=== PATIENT | male | born 2000 | race Two or more races ===

== ENCOUNTER 2025-08-11 23:03 | Emergency (ER) | payer MEDICAID, OTHER ==
[~2025-08-11] VITALS: Ht 175.3 cm; Wt 80.3 kg
--- NOTE | 2025-08-11 23:58 | DVH ---
EXAM: CT ORBITS WO CONTRAST CLINICAL HISTORY: Strabismus event TECHNIQUE: Multiple contiguous axial images were obtained of the facial bones without intravenous con trast. Sagittal and coronal reformations were obtained. This exam was performed according to our depa rtmental dose optimization program. Up-to-date CT equipment and radiation dose reduction techniques a re utilized as appropriate. Comparison: None FINDINGS: The mastoid air cells and visualized paranasal sinuses are well-aerated aside from trace paranasal si nus mucosal thickening and a small mucous retention cyst or polyp in the right maxillary sinus.. The globes and orbits are normal in appearance without CT evidence of orbital hemorrhage. The extraocular muscles are intact. No pre or postseptal inflammation, fluid collection, or gas. No facial, mandibul ar, or orbital wall fracture is identified. The temporomandibular joints are maintained. IMPRESSION: 1. No evidence of acute facial fracture or orbital hemorrhage. 2. No noncontrast evidence of acute abnormality in the visualized orbits.
[2025-08-11 23:59] LABS: Hematocrit 42.8 % (41.0-53.0); Hemoglobin 14.9 g/dL (13.5-17.5); Mean Corpuscular Hemoglobin 28.3 pg (28.0-32.0); Mean Corpuscular Volume 81.1 fL (80.0-100.0); Nucleated Red Blood Cells % 0.1 %
[2025-08-12] LABS: Chloride 103 mmol/L (98-107); Potassium 3.8 mmol/L (3.5-5.1); Sodium 140 mmol/L (136-145)
[2025-08-12 00:01] LABS: Anion Gap 10 (5-15); Calcium 9.3 mg/dL (8.7-10.4); Carbon Dioxide 27 mmol/L (20-31)
[2025-08-12 00:06] LABS: BUN/Creatinine Ratio 8.8 (10.0-20.0); Blood Urea Nitrogen 10 mg/dL (9-23)
[2025-08-12 00:08] LABS: Glucose 108 mg/dL (74-106)
--- NOTE | 2025-08-12 00:56 | ED.PDOC ---
History of Present Illness HPI Comments 25 y/o M, with no significant history, presents with c/c eye problem. Patient endorses on sudden, unprovoked, and atraumatic onset of double and then blurry vision, yesterday, while at work, operating a forklift. Patient states that his left eye was the eye of concern. Denial of pertinent history or events. Patient states the double vision and blurred vision has resolved at today's visit. Patient also reports concerns for recent onset of intermittent chest pain 2x weeks ago. Denial of any symptoms, currently. Vital signs were stable on arrival. Chief Complaint: Eye Problem Time Seen by MD: 23:24 Reviewed Notes: Nurses Notes, Medications, Allergies Allergies: Coded Allergies: NO KNOWN ALLERGIES (Unverified , 08/11/25) Information Source: Patient Mode of Arrival: Ambulatory Severity: Moderate Timing: Days Duration: Minutes Prehospital treatment: None Past Medical History PAST MEDICAL HISTORY: Denies Surgical History: Denies all surgeries Family History Family History: Reviewed,noncontributory to illness, No family hx of Cancer, No family hx of DM, No family hx of Heart mini, No family hx of HTN, No family hx ofKidney mini, No family hx of Liver mini, No family hx of Lung mini, No family hx of Stroke Social History Smoker: Non-Smoker Alcohol: Denies ETOH Use Drugs: Denies Drug Use Lives In: Home Constitutional: denies: chills, diaphoresis, fatigue, fever, malaise, sweats, weakness, others EENTM: reports: others (Strabismus event with blurred vision that has resolved); denies: blurred vision, double vision, ear bleeding, ear discharge, ear drainage, ear pain, ear ringing, eye pain, eye redness, hearing loss, mouth pain, mouth swelling, nasal discharge, nose bleeding, nose congestion, nose pain, photophobia, tearing, throat pain, throat swelling, voice changes Respiratory: denies: cough, hemoptysis, orthopnea, SOB at rest, shortness of breath, SOB with excertion, stridor, wheezing, others Cardiovascular: denies: chest pain, dizzy spells, diaphoresis, Dyspnea on exertion, edema, irregular heart beat, left arm pain, lightheadedness, palpitations, PND, syncope, others Gastrointestinal: denies: abdomen distended, abdominal pain, blood streaked bowels, constipated, diarrhea, dysphagia, difficulty swallowing, hematemesis, melena, nausea, poor appetite, poor fluid intake, rectal bleeding, rectal pain, vomiting, others Genitourinary: denies: burning, dysuria, flank pain, frequency, hematuria, in continence, penile discharge, penile sore, pain, testicle pain, testicle swelling, urgency, others Neurological: denies: dizziness, fainting, headache, left sided numbness, left sided weakness, numbness, paresthesia, pre-existing deficit, right sided numbness, right sided weakness, seizure, speech problems, tingling, tremors, weakness, others Musculoskeletal: denies: back pain, gout, joint pain, joint swelling, muscle pain, muscle stiffness, neck pain, others Integumetry: denies: bruises, change in color, change in hair/nails, dryness, laceration, lesions, lumps, rash, wounds, others Allergic/Immunocompromised: denies: Difficulty Healing, Frequent Infections, Hives, Itching, others Hematologic/Lymphatic: denies: anemia, blood clots, easy bleeding, easy bruising, swollen glands, others Endocrine: denies: excessive hunger, excessive sweating, excessive thirst, excessive urination, flushing, intolerance to cold, intolerance to heat, unexplained weight gain, unexplained weight loss, others Psychiatric: denies: anxiety, bipolar disorder, depression, hopeless, panic disorder, schizophrenia, sleepless, suicidal, others All Other Systems: Reviewed and Negative (Comprehensive review of systems are negative unless stated in HPI) Physical Exam General Appearance: No Apparent Distress (Patient was in no distress at time of evaluation.), Normal HEENT: Normal ENT Inspection, Pharynx Normal, TMs Normal, Other (Eye exam was unremarkable. Patient displayed PERRLA and EOMI. No nystagmus or hyphema noted. No signs of trauma.) Neck: Full Range of Motion, Non-Tender, Normal, Normal Inspection Respiratory: Chest Non-Tender, Lungs Clear, No Accessory Muscle Use, No Respiratory Distress, Normal Breath Sounds Cardiovascular: No Edema, No JVD, No Murmur, No Gallop, Normal Peripheral Pulses, Regular Rate/Rhythm, Other (Cardiovascular evaluation was unremarkable.) Breast Exam: Deferred Gastrointestinal: No Organomegaly, Non Tender, No Pulsatile Mass, Normal Bowel Sounds, Soft Genitalia: Deferred Pelvic: Deferred Rectal: Deferred Extremities: No calf tenderness, Normal capillary refill, Normal inspection, Normal range of motion, Non-tender, No pedal edema Neurologic: Alert Cerebellar Function: NOT DONE Reflexes: NOT DONE Skin: Dry, Normal Color, Warm Lymphatic: No Adenopathy Was a procedure done? Was a procedure done?: No Differential Dx Considerations may include: Intracranial neoplasm, electrolyte abnormality, sepsis, acute coronary syndrome, NV X-Ray, Labs, Meds, VS Vital Signs Date Time Temp Pulse Resp B/P (MAP) Pulse Ox O2 Delivery O2 Flow Rate FiO2 08/12/25 00:33 59 08/11/25 23:08 97.9 91 19 117/76 97 97.9 Lab Test 08/11/25 23:42 Range/Units White Blood Count 7.1 4.4-10.8 10^3/uL Red Blood Count 5.28 4.5-5.90 10^6/uL Hemoglobin 14.9 13.5-17.5 g/dL Hematocrit 42.8 41.0-53.0 % Mean Corpuscular Volume 81.1 80.0-100.0 fL Mean Corpuscular Hemoglobin 28.3 28.0-32.0 pg Mean Corpuscular Hemoglobin Concent 34.9 32.0-36.0 g/dL Red Cell Distribution Width 13.7 11.8-14.3 % Platelet Count 198 140-450 10^3/uL Mean Platelet Volume 7.9 6.9-10.8 fL Neutrophils (%) (Auto) 51.6 37.0-80.0 % Lymphocytes (%) (Auto) 37.8 10.0-50.0 % Monocytes (%) (Auto) 7.2 0.0-12.0 % Eosinophils (%) (Auto) 3.1 0.0-7.0 % Basophils (%) (Auto) 0.3 0.0-2.0 % Neutrophils # (Auto) 3.7 1.6-8.6 10 ^3/uL Lymphocytes # (Auto) 2.7 0.4-5.4 10 ^3/uL Monocytes # (Auto) 0.5 0-1.3 10 ^3/uL Eosinophils # (Auto) 0.2 0-0.8 10 ^3/uL Basophils # (Auto) 0 0-0.2 10 ^3/uL Nucleated Red Blood Cells 0.1 % Sodium Level 140 136-145 mmol/L Potassium Level 3.8 3.5-5.1 mmol/L Chloride Level 103 98-107 mmol/L Carbon Dioxide Level 27 20-31 mmol/L Anion Gap 10 5-15 Blood Urea Nitrogen 10 9-23 mg/dL Creatinine 1.14 0.700-1.30 mg/dL Glomerular Filtration Rate Calc 90 >90 mL/min BUN/Creatinine Ratio 8.8 L 10.0-20.0 Serum Glucose 108 H 74-106 mg/dL Calcium Level 9.3 8.7-10.4 mg/dL Troponin I High Sensitivity < 3 L </=54 ng/L [place] [id number] Ph: [phone] DIAGNOSTIC IMAGING Diagnostic Imaging Report : [id number] Signed PATIENT: MIRYAM MOLNIA ACCT: [id number] UNIT: [id number] : 2000 LOC: ER ROOM / BED: / AGE / SEX: 25 / M ADM STATUS: REG ER SERVICE [id number] ORDERING PHYSICIAN: CHEO KESSLER PAC PROCEDURE(s): OB1CT - ORBITS WO CONTRAST REASON: Strabismus event ORDER NUMBER(s): [id number], ACCESSION NUMBER(s): [id number] EXAM: CT ORBITS WO CONTRAST CLINICAL HISTORY: Strabismus event TECHNIQUE: Multiple contiguous axial images were obtained of the facial bones without intravenous contrast. Sagittal and coronal reformations were obtained. This exam was performed according to our departmental dose optimization program. Up-to-date CT equipment and radiation dose reduction techniques are utilized as appropriate. Comparison: None FINDINGS: The mastoid air cells and visualized paranasal sinuses are well-aerated aside from trace paranasal sinus mucosal thickening and a small mucous retention cyst or polyp in the right maxillary sinus.. The globes and orbits are normal in appearance without CT evidence of orbital hemorrhage. The extraocular muscles are intact. No pre or postseptal inflammation, fluid collection, or gas. No facial, mandibular, or orbital wall fracture is identified. The temporomandibu lar joints are maintained. IMPRESSION: 1. No evidence of acute facial fracture or orbital hemorrhage. 2. No noncontrast evidence of acute abnormality in the visualized orbits. ATED BY: CHERIE LUZ MD DICTATED DATE/TIME: 08/11/252355 SIGNED BY: CHERIE LUZ MD SIGNED DATE/TIME: 08/11/252355 CC: X-Ray, Labs, Meds, VS Comment All studies performed the ED were evaluated by me personally. Serum studies were unremarkable for any systemic concerns including unremarkable cardiac markers. EKG revealed a sinus rhythm with a rate of 59. Borderline short UT interval was noted with possible right ventricular hypertrophy. UT interval of 118 and QT interval of 382. CT evaluation without contrast of the bilateral orbits was unremarkable. No neoplasms noted. Patient has been advised to follow up with Ophthalmology in the next few days for definitive evaluation of orbit concerns. Patient should follow up with his primary care provider for discussions related to chest pain concerns. Time of 1ST Reevaluation: 01:18 Reevaluation 1ST: Unchanged Consultation: PCP, Cardiology Patient Education/Counseling: Treatment, Need For Follow Up Family Education/Counseling: Diagnosis, Treatment, No Family Present SEPSIS Sepsis Screen Date sepsis recognized/suspect: Aug 11, 2025 Time Sepsis recognized/suspect: 2307 Recent Procedure: No On Antibiotic Therapy: No Respiratory Rate >20: No Heart Rate >90: No Temp<36 C (96.8 F) or >38.3 C: No SBP <90 or MAP <65 mmHG: No New Acute Mental Status Change: No Is the patient on CPAP, BIPAP,: No Physician Orders Electrocardigram (08/11/25 23:22) Orbits Wo Contrast (08/11/25 23:22) Vital Signs Date Time Temp Pulse Resp B/P (MAP) Pulse Ox O2 Delivery O2 Flow Rate FiO2 08/12/25 00:33 59 08/11/25 23:08 97.9 91 19 117/76 97 97.9 Laboratory Tests Test 08/11/25 23:42 White Blood Count 7.1 10^3/uL (4.4-10.8) Departure 1 Departure Time of Disposition: 01:19 Impression: Primary Impression: H/O blurred vision Additional Impression: History of chest pain Disposition: 01 HOME / SELF CARE / HOMELESS Condition: Stable Additional Instructions: Advised patient follow up with Ophthalmology in the next day or two for definitive evaluation of eye concerns. Additionally, patient should follow up with the primary care provider for discussions related to recurrent chest pain issues. Discharged With: Self, Friend Critical Care Note Critical Care Time?: No Stability Stability form required: No Heart Score Heart Score: Heart Score Response (Comments) Value History Slightly Suspicious 0 EKG Repolarization Disturb 1 Age <45 0 Risk Factors No known risk factors 0 Troponin Normal limit 0 Total 1 I personally scribed for CHEO KESSLER PAC ([email or web address]) on 08/12/25 at 00:56. Electronically submitted by Hubert Brito ([email or web address]). CHEO KESSLER PAC Aug 12, 2025 00:56
[2025-08-12 03:30] VITALS: BP 121/81; TEMP 97.8
[2025-08-12 04:12] VITALS: PULSE 60; RESP 17; O2SAT 98
--- NOTE | 2025-08-12 09:49 | ECG ---
[facility] Test Date: 2025-08-12 Test Time: 00:33:50 Pat Name: MIRYAM MOLINA Department: Room: Gender: M Pathology Collector: BE : 2000 Requested By: CHEO KESSLER Order Number: [id number] Reading MD: Measurements Intervals [place] Rate: 59 P: 39 TX: 118 QRS: 104 QRSD: 98 T: 17 QT: 382 QTc: 379 Interpretive Statements Sinus rhythm Borderline short [place] interval Consider right ventricular hypertrophy Please click the below link to view image of tracing.
== END 2025-08-12 03:45 | disposition home or self-care (01) ==
LOC: ER 23:03
DX: H53.2 Diplopia (principal); R07.9 Chest pain, unspecified
CPT/HCPCS: 36415; 70480; 80048; 84484; 85025; 93005